=== PATIENT | female | born 1930 | race Caucasian/White ===

== ENCOUNTER 2017-11-08 09:21 | Emergency (ER) | payer OTHER ==
[2017-11-08 09:33] VITALS: RESP 18; TEMP 98.4
--- NOTE | 2017-11-08 09:47 | EDPHY ---
H & P Smoking Status: Never smoked Time Seen by Provider: 11/08/17 09:35 HPI/ROS: CHIEF COMPLAINT: Left wrist laceration HISTORY OF PRESENT ILLNESS: 87-year-old right-hand dominant female with up-to- date tetanus arrives via private vehicle stating that shortly prior to arrival she was picking up a ceramic flower pot when she fell onto it and it broke she sustained laceration to her left wrist ulnar aspect. No paresthesia. No foreign body sensation. No head injury. Mechanical incident. No syncope. PHYSICAL EXAM (Prior to examination, patient consented to physical exam, hands were washed and my usual and customary physical exam procedures followed) 1) GENERAL: Well-developed, well-nourished, alert and oriented. Appears to be in no acute distress. 2) HEAD: Normocephalic 3) HEENT: Pupils equal, round, reactive to light bilaterally. 4) LUNGS: Breathing comfortably. 5) MUSCULOSKELETAL: Left upper extremity: No underlying osseous discomfort. Laceration to the ulnar aspect of left wrist. Soft compartments. Normal coloration. Left knee: Tender to palpation medial aspect with noted abrasion. Proximally distally nontender. Right knee: Tender to palpation medial aspect. Abrasion present. Full pain-free range of motion. 6) SKIN: Left wrist ulnar aspect 3 cm laceration with skin avulsion. No visible or palpable foreign body 7) VASCULAR: pulses and cap refill present are brisk in all extremities 8) NEUROLOGIC: Radial, ulnar, median nerve function intact with no deficits appreciated on exam DIFFERENTIAL DIAGNOSIS: in no particular order including but not limited to fracture, sprain, compartment syndrome Xray of the left wrist interpreted by myself: no definitive acute osseous abnormality or radiopaque foreign bodies Procedure: Splint A Velcro volar splint Was applied by ER forestry aid technician in order to immobilize and reduce stress off of the laceration site. After application of the splint I returned and re-examined the patient. The splint was adequately immobilizing the joint and distal to the splint the patient's circulation and sensation were intact. Patient shows no signs of compartment syndrome. Was given orthopedic precautions. Procedure: Laceration repair. I explained the indications, risks and benefits for both laceration repair and anesthetic administration. Verbal consent was obtained from the patient. The laceration on the left wrist was anesthetized using 0.5% bupivicaine with epinephrine. After anesthetic administered the patient was observed for a period of time and had no apparent adverse effects. The wound was cleaned, prepped, draped in normal sterile fashion and explored to its base. No foreign body seen, no foreign bodies palpated. There were no deep structures involved. No tendon injury was identified. The wound was repaired with . The wound repair was complex. The procedure was performed by myself. Patient has been informed that scarring will occur, although efforts have been made to minimize this. (Aminata Gibson) Constitutional: Initial Vital Signs Temperature (C) 36.9 C 11/08/17 09:30 Heart Rate 71 11/08/17 09:30 Respiratory Rate 18 11/08/17 09:30 Blood Pressure 170/92 H 11/08/17 09:30 O2 Sat (%) 95 11/08/17 09:30 O2 Delivery Mode Room Air Allergies/Adverse Reactions: penicillin V Allergy (Verified 11/08/17 09:29) Sulfa (Sulfonamide Antibiotics) Allergy (Verified 11/08/17 09:29) Home Medications: Medication Instructions Recorded Amiodarone 150 mg/100 ml-D5w 11/08/17 Coumadin 11/08/17 Synthroid 11/08/17 MDM/Departure - [facility] Imaging Results: Imaging Impressions Forearm X-Ray 11/08/17 09:44 Impression: Negative. No acute fracture or foreign body. Knee X-Ray 11/08/17 10:55 Impression: 1. Negative. No acute fracture or effusion. 2. Well-seated right total knee arthroplasty. Knee X-Ray 11/08/17 10:55 Impression: 1. Negative. No acute fracture or effusion. 2. Well-seated right total knee arthroplasty. Images reviewed by myself (Aminata Gibson) ED Course/Re-evaluation: The patient was evaluated and managed by the Physician Fugitive Detective. My co- signature indicates that I have reviewed this chart and I agree with the findings and plan of care as documented. I am the secondary supervising physician. (Jory Welch) - Depart Disposition: Home, Routine, Self-Care Clinical Impression: Abrasion, left knee, initial encounter, Abrasion, right knee, initial encounter Laceration of left wrist Qualifiers: Encounter type: initial encounter Qualified Code(s): S61.512A - Laceration without foreign body of left wrist, initial encounter Condition: Good Instructions: Laceration (ED) Additional Instructions: Return to the ER if you develop redness, swelling, discharge, warmth to the wound, red streaks going up your arm, or any other symptoms that concern you. Referrals: Return, to the ER in 10 days for suture removal [Other] - 11/18/17
[2017-11-08 12:35] VITALS: BP 163/81; PULSE 67; O2SAT 97
== END 2017-11-08 12:33 | disposition home or self-care (01) ==
PROC: 0HQEXZZ Repair Left Lower Arm Skin, External Approach (ICD-10-PCS; principal; 2017-11-08)
DX: S61.512A Laceration without foreign body of left wrist, initial encounter (principal); S80.211A Abrasion, right knee, initial encounter; S80.212A Abrasion, left knee, initial encounter; Z79.01 Long term (current) use of anticoagulants; W26.8XXA Contact with other sharp object(s), not elsewhere classified, initial encounter; Y99.8 Other external cause status; Y93.89 Activity, other specified
CPT/HCPCS: 12002; 73090; 73564; 99284; L3908